=== PATIENT | female | born 1995 | race Hispanic/Latino ===

== ENCOUNTER 2018-05-31 05:46 | Inpatient (IN) | payer MEDICAID, OTHER, SELFPAY ==
[2018-05-31] MEDS: Lactated Ringer's 1,000 ML IV SCH ×2 (06:30→21:26)
[2018-05-31] MEDS ORDERED: Lidocaine 1% (PF) 30 ML VIAL ONE (07:03)
[2018-05-31] MEDS ORDERED: NS / Oxytocin 40 units/1000ml 1,000 ML ONE (07:03)
[2018-05-31] MEDS ORDERED: Sodium Chloride 0.9% 100 ML ONE (07:12)
[2018-05-31] MEDS ORDERED: Penicillin G Potassium 5 MILL.UNITS VIAL ONE (07:13)
[2018-05-31] MEDS ORDERED: Acetaminophen 500 MG TAB PO PRN (07:29)
[2018-05-31] MEDS ORDERED: Ibuprofen 800 MG TAB PO PRN (07:29)
[2018-05-31] MEDS ORDERED: Meperidine HCl/PF 25 MG/ML VIAL IM/IV PRN (07:29)
[2018-05-31] MEDS ORDERED: Penicillin G Potassium 5 MILL.UNITS in Sodium Chloride 0.9% 100 ML IV ONE (07:29)
[2018-05-31] MEDS ORDERED: Carboprost 250 MCG/ML AMP IM PRN (07:29)
[2018-05-31] MEDS ORDERED: Lidocaine 1% (PF) 30 ML VIAL SC PRN (07:29)
[2018-05-31] MEDS ORDERED: Promethazine HCl 25 MG/ML VIAL IM PRN (07:29)
[2018-05-31] MEDS ORDERED: Methylergonovine 0.2 MG/ML VIAL IM PRN (07:29)
[2018-05-31] MEDS ORDERED: Misoprostol 200 MCG TAB PR PRN (07:29)
[2018-05-31] MEDS ORDERED: NS / Oxytocin 40 units/1000ml 1,000 ML IV PRN (07:29)
[2018-05-31] MEDS ORDERED: Butorphanol Tartrate 1 MG/ML VIAL SLOW IVP PRN (07:29)
[2018-05-31] MEDS ORDERED: HYDROcodone/Acetaminophen 5/325 mg Tablet PO PRN ×2 (07:29→16:11)
[2018-05-31] MEDS ORDERED: Ondansetron HCl/PF 4 MG/2 ML Vial IVP PRN (07:29)
[2018-05-31 07:41] LABS: Hemoglobin 12.2 g/dL (12.0-16.0); Mean Corpuscular HGB CONC 35.4 g/dL (32.0-36.0); Mean Corpuscular Hemoglobin 31.2 pg (27.0-31.0); Mean Corpuscular Volume 88.2 fL (78.0-98.0); Platelet Count 221 thou/uL (130-400); RBC Distribution Width 12.2 % (11.5-14.5); Red Blood Cell (RBC) Count 3.93 mill/uL (4.20-5.40); White Blood Cell (WBC) Count 11.6 thou/uL (4.8-10.8)
[2018-05-31 08:19] LABS: Hep B Surf Ag Non-Reactive S/CO (NonReactive)
[2018-05-31 08:20] LABS: Syphilis Antibody Nonreactive (Nonreactive); Syphilis Antibody Index 0.03 S/CO (<1.00 Non-Reactive)
[2018-05-31] MEDS: Penicillin G 2.5 MILL.units 2.5 MILL.UNITS in Premix Bag 1 BAG IVPB SCH ×2 (11:00→16:35)
--- NOTE | 2018-05-31 13:03 | DN ---
DATE OF DELIVERY: 05/31/2018 PREOPERATIVE DIAGNOSIS: Term intrauterine in labor. POSTOPERATIVE DIAGNOSES: Term intrauterine in labor as well as maternal exhaustion. PROCEDURE PERFORMED: Vacuum assisted vaginal delivery. SURGEON: Gabriel Evans M.D. ANESTHESIA: Stadol 2 hours prior to delivery. BRIEF DELIVERY SUMMARY: This is a 23-year-old G2, now P2 who presented in active labor. She progres sed slowly, but adequately to complete and pushing. well being throughout the labor course was reassuring. She did receive 1 dose of Stadol approximately 2 hours prior to delivery. After pushin g for about 45 minutes, the patient was becoming increasingly uncooperative and feeling like she coul d not push any more. After discussion with her and her , the decision was made to proceed wit h vacuum-assisted vaginal delivery for the indication of maternal exhaustion. station at the a pplication of the vacuum was +3, head position was OA. No episiotomy was necessary. The vacuum was placed, taking care to exclude maternal tissues. Suction was then taken into the green zone and trac tion applied along with maternal pushing. There was advancement with each pull. There was one invol untary popoff and the vacuum was promptly replaced and the baby was successfully delivered on the 2nd pull, there were no lacerations. There was delivery of a vigorous female. Mouth and nares were bul b suctioned at the perineum. There was no nuchal cord. The was placed on mother's abdomen. Infant's Apgars were 9 at 1 minute and 9 at 5 minutes. Cord blood was collected and sent for analysi s. Placenta delivered spontaneously and intact with a 3-vessel umbilical cord. Uterine fundus was f irm following evacuation of the placenta. Mom and baby were left with the nurse in excellent conditi on attempting to breast feed.
[2018-05-31] MEDS ORDERED: Preparation H Ointment 28 GM TUBE PR PRN (16:11)
[2018-05-31] MEDS ORDERED: Milk Of Magnesia 30 ML UDCUP PO PRN (16:11)
[2018-05-31] MEDS ORDERED: NS / Oxytocin 40 units/1000ml 1,000 ML IV SCH (16:11)
[2018-05-31] MEDS ORDERED: Lanolin Ointment 7 GM TUBE TOP PRN (16:11)
[2018-05-31] MEDS ORDERED: Benzocaine/Menthol 20-0.5% 60 ML CAN TOP PRN (16:11)
[2018-05-31] MEDS ORDERED: Bisacodyl 10 MG SUPP PR PRN (16:11)
[2018-05-31] MEDS: Ibuprofen 800 MG TAB PO SCH ×2 (16:33→21:23)
[2018-05-31] MEDS: Ferrous Sulfate 325 MG TAB PO SCH (16:33)
[2018-05-31] MEDS: Docusate Calcium (SURFAK) 240 MG CAP PO SCH (21:23)
[2018-06-01] MEDS: Lactated Ringer's 1,000 ML IV SCH ×2 (05:23→09:29)
[2018-06-01] MEDS: Ibuprofen 800 MG TAB PO SCH ×2 (06:32→14:19)
--- NOTE | 2018-06-01 08:24 | PDOC.PP ---
Post Progress Note Post Day #: 1 Subjective: No c/o. Feeding well. Pain controlled. PO intake tolerated: yes Flatus: yes Ambulation: yes Vital Signs (12 hours) Temp Pulse Resp BP 06/01/18 07:42 98.3 F 63 16 06/01/18 06:30 98.3 F 63 16 90/55 L 05/31/18 23:45 98.2 F 67 16 87/52 L 05/31/18 20:55 98.4 F 58 L 16 106/55 L Weight Weight 4.656 oz - Physical Examination General: NAD Cardiovascular: no m/r/g, RRR Respiratory: clear to auscultation bilaterally, non-labored breathing Abdominal: + bowel sounds, lochia, no distention, appropriately TTP Result Diagrams: 05/31/18 06:30 Additional Labs: Post Labs Blood Type A POSITIVE 05/31/18 06:30 Hep Bs Antigen Non-Reactive S/CO (NonReactive) 05/31/18 06:30 (1) Vaginal delivery Code(s): O80 - ENCOUNTER FOR FULL-TERM UNCOMPLICATED DELIVERY Status: Acute - Assessment/Plan Routine PP care D/C home at 24 hours PP F/u in 6 weeks.
[2018-06-01] MEDS: Ferrous Sulfate 325 MG TAB PO SCH (09:28)
[2018-06-01] MEDS: Docusate Calcium (SURFAK) 240 MG CAP PO SCH (09:32)
[2018-06-01 12:43] VITALS: BP 95/60; TEMP 98
== END 2018-06-01 17:00 | disposition home or self-care (01) | DRG 775 ==
LOC: L&D/OP 05:46 → L&D-LIB 07:13 → 3SE 16:10
PROVIDERS: ADMIT Family Medicine; ATTEND Family Medicine
PROC: 10D07Z6 Extraction of Products of Conception, Vacuum, Via Natural or Artificial Opening (ICD-10-PCS; principal; 2018-05-31)
DX: O99.824 Streptococcus B carrier state complicating childbirth (principal); O99.02 Anemia complicating childbirth; D64.9 Anemia, unspecified; Z3A.38 38 weeks gestation of pregnancy; Z37.0 Single live birth
CPT/HCPCS: 85027; 86780; 86850; 86900; 86901; 87340; 99285; J0595; J2001; J2540; J7050

== ENCOUNTER 2021-05-17 02:10 | Emergency (ER) | payer OTHER | END 2021-05-17 02:40 | disposition short-term general hospital (02) | LOC: ERS 02:10 | DX: O80 Encounter for full-term uncomplicated delivery (principal); Z3A.39 39 weeks gestation of pregnancy | CPT/HCPCS: 99284 ==